=== PATIENT | female | born 1995 | race Caucasian/White ===

== ENCOUNTER 2017-06-15 13:23 | Emergency (ER) | payer BC ==
[2017-06-15 13:39] VITALS: BP 130/68
--- NOTE | 2017-06-15 14:12 | UC ---
Lower Extremity/Ankle HPI - HPI Summary HPI Summary: Sustained sudden pain in L foot while running about 1.5 weeks ago, near medial arch. Tried resting it and using an elliptical, then went on a short run a couple days ago and pain worsened. Has had episode like this once in the past. No overt twisting injury. - History of Current Complaint Chief Complaint: UCLowerExtremity Stated Complaint: FOOT INJURY Time Seen by Provider: 06/15/17 13:50 Hx Obtained From: Patient Hx Last Menstrual Period: iud ?: No Onset/Duration: Sudden Onset Severity Initially: Mild Severity Currently: Moderate Aggravating Factor(s): Standing, Ambulation, Other - running Alleviating Factor(s): Rest Able to Bear Weight: Yes - Allergies/Home Medications Allergies/Adverse Reactions: Allergies Allergy/AdvReac Type Severity Reaction Status Date / Time No Known Allergies Allergy Verified 06/15/17 13:39 Home Medications: Home Medications Methylphenidate HCl [Concerta] 54 mg PO 06/15/17 [History] Methylphenidate HCl [Metadate ER] 20 mg PO 06/15/17 [History] Sertraline HCl [Zoloft] 200 mg PO 06/15/17 [History] PMH/Surg Hx/FS Hx/Imm Hx Psychological History: Depression Other Psychological History: ADD - Surgical History Surgical History: Yes Surgery Procedure, Year, and Place: adnoides - Family History Known Family History: Negative: Blood Disorder - Social History Occupation: Student Lives: Alone Alcohol Use: Weekly Substance Use Type: Marijuana Substance Use Comment - Amount & Last Used: daily Smoking Status (MU): Current Every Day Smoker Review of Systems Constitutional: Negative Skin: Negative Eyes: Negative ENT: Negative Respiratory: Negative Cardiovascular: Negative Gastrointestinal: Negative Genitourinary: Negative Motor: Negative Neurovascular: Negative Musculoskeletal: Arthralgia Neurological: Negative Psychological: Negative Is Patient Immunocompromised?: No All Other Systems Reviewed And Are Negative: Yes Physical Exam Triage Information Reviewed: Yes Appearance: Well-Appearing, No Pain Distress, Well-Nourished Vital Signs: Initial Vital Signs Temp 98.0 F 06/15/17 13:34 Pulse 53 06/15/17 13:34 Resp 18 06/15/17 13:34 BP 130/68 06/15/17 13:34 Pulse Ox 100 06/15/17 13:34 Vital Signs Reviewed: Yes Eye Exam: Normal Eyes: Positive: Conjunctiva Clear ENT Exam: Normal ENT: Positive: Normal ENT inspection, Hearing grossly normal, Pharynx normal, TMs normal Dental Exam: Normal Neck exam: Normal Neck: Positive: Supple, Nontender, No Lymphadenopathy Respiratory Exam: Normal Respiratory: Positive: Chest non-tender, Lungs clear, Normal breath sounds, No respiratory distress, No accessory muscle use Cardiovascular Exam: Normal Cardiovascular: Positive: RRR, No Murmur Musculoskeletal Exam: Other - Pain at plantar base of R 1st MT Musculoskeletal: Positive: Strength Intact, ROM Intact Neurological Exam: Normal Neurological: Positive: Alert Psychological Exam: Normal Skin Exam: Normal Diagnostics - Radiology No standard instances Xray Interpretation: No Acute Changes Radiology Interpretation Completed By: ED Physician Lower Extremity Course/Dx - Differential Dx/Diagnosis Provider Diagnoses: L foot pain Discharge - Discharge Plan Condition: Stable Disposition: HOME Patient Education Materials: Swollen Joint (ED) Referrals: Dionna Abarca MD [Medical Doctor] - 1 Week Additional Instructions: Use crutches as much as possible. OVERUSE SYNDROME: Overuse syndrome is inflammation caused by repeated activity. Many daily activities cause minor, microscopic injury to muscles, tendons, and ligaments. With adequate rest, the tissues repair themselves. But sometimes a repetitive movement or new activity is too much for the tissue to tolerate, and inflammation results. Examples of overuse syndrome are tendonitis, bursitis, muscle inflammation, and joint capsulitis. Rest. Stop or decrease the activity that created the problem. You may need a sling or splint. For the first couple of days after symptoms begin, ice packs can be helpful. When the symptoms start improving, you can switch to hot packs followed by stretching and motion of the painful area. Antiinflammatory medicine such as ibuprofen can help. Call or return if there is fever, increasing pain, spreading redness, numbness, weakness, or other significant change.
--- NOTE | 2017-06-15 14:31 | RAD ---
Indication: Sudden onset LEFT foot pain plantar aspect base of first metatarsal while running. Comparison: No relevant prior exams available on the [facility] for comparison. Technique: AP, lateral, and oblique views LEFT foot. Report: Negative for fracture or radiographic stigmata of stress reaction. Normal articular alignment. No arthropathic change evident. Unremarkable soft tissue contours. IMPRESSION: Negative exam.
== END 2017-06-15 14:30 | disposition home or self-care (01) ==
LOC: UCEAST 13:23
DX: M79.672 Pain in left foot (principal); F98.8 Other specified behavioral and emotional disorders with onset usually occurring in childhood and adolescence; F32.9 Major depressive disorder, single episode, unspecified; F12.10 Cannabis abuse, uncomplicated
CPT/HCPCS: 99202; G0463

== ENCOUNTER 2017-09-21 17:17 | Emergency (ER) | payer BC ==
[2017-09-21 18:18] VITALS: BP 96/49
--- NOTE | 2017-09-21 19:01 | RAD ---
INDICATION: Right foot pain COMPARISON: None TECHNIQUE: AP, lateral, and oblique views were obtained. FINDINGS: The bony structures, joint spaces, and soft tissues are normal for age. IMPRESSION: NEGATIVE EXAMINATION.
--- NOTE | 2017-09-21 19:15 | UC ---
Lower Extremity/Ankle HPI - HPI Summary HPI Summary: Pt presents with right foot pain after running 15 miles yesterday. She tells me that around mile 11 she felt and heard something pop in her right foot. Had mild pain, but kept running. When she finished she wore an old walking boot that she had at home, this seems to help a little. She has not taken anything OTC for this pain. She denies hx of injury, but is an avid runner. - History of Current Complaint Chief Complaint: UCLowerExtremity Stated Complaint: FOOT INJURY Time Seen by Provider: 09/21/17 19:13 Hx Obtained From: Patient Hx Last Menstrual Period: years Onset/Duration: Gradual Onset Severity Initially: Mild Severity Currently: Mild Pain Intensity: 3 Pain Scale Used: 0-10 Numeric Aggravating Factor(s): Standing, Ambulation Alleviating Factor(s): Rest, Elevation, Ice - Allergies/Home Medications Allergies/Adverse Reactions: Allergies Allergy/AdvReac Type Severity Reaction Status Date / Time No Known Allergies Allergy Verified 09/21/17 18:18 PMH/Surg Hx/FS Hx/Imm Hx Previously Healthy: Yes - Surgical History Surgical History: Yes Surgery Procedure, Year, and Place: adnoid - Family History Known Family History: Negative: Blood Disorder - Social History Occupation: Student Lives: Dormitory/Roommates Alcohol Use: Weekly Substance Use Type: Marijuana Substance Use Comment - Amount & Last Used: daily Smoking Status (MU): Former Smoker Review of Systems Constitutional: Negative Respiratory: Negative Cardiovascular: Negative Neurovascular: Negative Musculoskeletal: Other: - Pain right foot Neurological: Negative Psychological: Negative All Other Systems Reviewed And Are Negative: Yes Physical Exam Triage Information Reviewed: Yes Appearance: Well-Appearing, No Pain Distress, Well-Nourished Vital Signs: Initial Vital Signs Temp 98.4 F 09/21/17 18:14 Pulse 62 09/21/17 18:14 Resp 15 09/21/17 18:14 BP 96/49 09/21/17 18:14 Pulse Ox 100 09/21/17 18:14 Vital Signs Reviewed: Yes Respiratory: Positive: Lungs clear, Normal breath sounds, No respiratory distress Cardiovascular: Positive: RRR, No Murmur, Pulses Normal, Brisk Capillary Refill - Right foot and all toes Musculoskeletal: Positive: Strength Intact - Right foot and ankle, ROM Intact - Right foot and ankle, No Edema - Right foot, Other: - Mild TTP over right 5th MTP and plantar arch. No obvious bony deformity. Neurological: Positive: Alert, Other: - Sensations intact right foot and all toes Psychological: Positive: Age Appropriate Behavior Lower Extremity Course/Dx - Course Course Of Treatment: IMPRESSION: NEGATIVE EXAMINATION. Suspect overuse injury - advised RICE, ibuprofen, and gel shoe inserts. - Differential Dx/Diagnosis Provider Diagnoses: Right foot pain Discharge - Discharge Plan Condition: Stable Disposition: HOME Patient Education Materials: Metatarsalgia (DC) Referrals: No Primary Care Phys,NOPCP [Primary Care Provider] - Additional Instructions: If you develop a fever, shortness of breath, chest pain, new or worsening symptoms - please call your PCP or go to the ED. 1) Rest, Ice, and elevate your foot as much as possible over the next 24-48 hours. 2) Try a GEL SHOE INSERT with your daily shoes and when active for at least 1 week. 3) May take 400-600mg of ibuprofen every 6-8 hours as needed for pain.
== END 2017-09-21 19:34 | disposition home or self-care (01) ==
LOC: UCEAST 17:17
DX: M79.671 Pain in right foot (principal); Z87.891 Personal history of nicotine dependence
CPT/HCPCS: 99211; G0463